=== PATIENT | male | born 1985 | race Caucasian/White ===

== ENCOUNTER 2020-09-26 10:49 | Emergency (ER) | payer OTHER ==
[2020-09-26 13:49] LABS: HEMOGLOBIN 15.8 gm/dl (14.0-17.5); RED BLOOD COUNT 4.97 M/UL (4.20-5.50); WHITE BLOOD COUNT 14.6 K/UL (4.5-11.0)
[2020-09-26 14:45] LABS: BUN/CREATININE RATIO 11 (0-10)
[2020-09-26] MEDS ORDERED: IBUPROFEN800 MG PO (16:38)
[2020-09-26] MEDS ORDERED: AUGMENTIN 875-1 EACH PO (16:38)
[2020-09-26] MEDS ORDERED: ZOFRAN ODT 4 MG4 MG PO (16:38)
[2020-09-26] MEDS ORDERED: FLAGYL500 MG PO (16:38)
== END 2020-09-26 16:56 | disposition home or self-care (01) ==
LOC: ER1 10:49
PROVIDERS: Emergency Medicine
DX: K57.32 Diverticulitis of large intestine without perforation or abscess without bleeding (principal); Z86.16 Personal history of COVID-19
CPT/HCPCS: 71045; 80053; 81001; 82550; 82553; 83605; 83690; 84484; 85025; 85379; 93005; 96374; 96375; 99284; J1885; J2405; Q9967